=== PATIENT | female | born 1995 | race Caucasian/White ===

== ENCOUNTER → 2021-12-25 10:28 | Outpatient (CLI) | payer BC, MEDICAID, SELFPAY ==
--- NOTE | ~2021-12-25 | US_ITS ---
US breast RT complete INDICATION: Palpable right breast lump TECHNIQUE: Complete right breast ultrasound including all 4 quadrants in the subareolar location. COMPARISON: No prior studies for comparison. FINDINGS: The right breast is composed of normal heterogeneous echotexture without focal solid or cys tic mass. IMPRESSION: 1: Normal right breast ultrasound. BI-RADS CATEGORY 1 - NEGATIVE Reviewed, dictated and finalized at location A.
== END ==
PROVIDERS: PCP Nurse Practitioner; Visit Provider Nurse Practitioner
DX: N63.10 Unspecified lump in the right breast, unspecified quadrant (principal)
CPT/HCPCS: 76641

== ENCOUNTER 2023-12-04 15:06 | Observation (INO) | payer OTHER, SELFPAY ==
--- NOTE | ~2023-12-04 | CT_ITS ---
EXAMINATION: CT abdomen pelvis wo/w con DATE: 12/04/2023 20:19 INDICATION: Hematuria. Pyelonephritis. TECHNIQUE: Computed tomography (CT) of the abdomen and pelvis was performed without and with 100 mL O mnipaque 350. Automated exposure control and iterative reconstruction technique were employed. The do se-length product was 1074.01 mGy-cm. COMPARISON: None FINDINGS: The visualized portions of the lung bases demonstrate a calcified left lung nodule, consistent with o ld granulomatous disease. No pleural effusion. The heart size is normal. No pericardial effusion. The liver and spleen are normal. There are changes of cholecystectomy. The pancreas, adrenal glands, and kidneys are normal. There is no urolithiasis. There is an umbilical hernia containing fat. There are no dilated loops of bowel. The appendix is normal. There are no pathologically enlarged lymph nodes. There is mild lumbar spondylosis. IMPRESSION: 1. No urolithiasis. 2. Umbilical hernia containing fat. Reviewed, dictated and finalized at location E.
[2023-12-04 14:45] VITALS: BP 134/87; PULSE 102; RESP 20; TEMP 36.8; O2SAT 96
--- NOTE | 2023-12-04 14:45 | ADMGEN ---
This patient, JERSON CARIAS, was admitted to Medical Room 244-. Patient/family oriented to hospital policies and general routines including ID bracelet, bed and alarms, visiting hours, pain management, procedures, bathroom and other care routines, personal items, smoking policy, room service/diet, and visiting hours. Information on how to activate the Rapid Response Team has been discussed. Patient/Family are encouraged to report perceived risks to care and to ask questions if they do not understand what they are told or what they should do.
--- NOTE | 2023-12-04 15:14 | PM.IMHP ---
H&P: HPI History of Present Illness Date/Time: 12/04/23 15:14 Chief Complaint: pyelonephritis Narrative: 28 yo seen in office 12/01 for 4 days of frequency of urination. She tried Azo over the counter and made appointment. UA showed nitrates and blood. On exam had CVA and suprapubic tenderness. She started ciprofloxacin 500 mg x 7 days and was ordered Rochepin for suspected early pyelonephritis. Given IM 12/01. Patient called today reporting increased back pain with trouble breathing due to pain. She was advised to go to ER. She went to [place] and was given dose of morphine and new oral antibiotic script and dc home. She called from the parking lot and informed me what had happened. I recommended direct admit to [place] and patient agreed. Urine culture from office just checked on and still pending. Patient denies fevers. Review of Systems Constitutional: Constitutional: Reports body ache(s) and Reports fatigue Cardiovascular: Cardiovascular: Reports other (trouble breathing due to pain) Genitourinary: Genitourinary: Reports nocturia and Reports urinary urgency Musculoskeletal: Musculoskeletal: Reports back pain and Reports other PMFSH Past Medical History Medical History (Updated 12/04/23 @ 15:30 by Wendy Templeton MD) Depression with anxiety GERD (gastroesophageal reflux disease) IBS (irritable bowel syndrome) (normal spontaneous vaginal delivery) x2 PUD (peptic ulcer disease) Surgical History Surgical History (Updated 12/04/23 @ 15:27 by Wendy Templeton MD) S/P laparoscopic cholecystectomy Meds Home Medications and Allergies Allergies Allergy/AdvReac Type Severity Reaction Status Date / Time amoxicillin Allergy Unknown Hives / Verified 03/01/19 17:32 Red Face Penicillins Allergy Unknown Verified 03/01/19 17:32 Exam Const: General: uncomfortable and other (wt 185) GI: GI Palp: Yes Bladder palpation abnormal (tender) and Yes Other GI palpation findings present : General: Yes CVA tenderness External Female Exam: normal external appearance Speculum Exam - Vagina: normal appearance of the vagina Speculum Exam - Cervix: normal appearance of the cervix Bimanual exam- vagina & uterus: normal bimanual exam Assessment and Plan Assessment and plan (1) Pyelonephritis: Code(s): N12 - Tubulo-interstitial nephritis, not specified as acute or chronic Status: Acute Assessment and Plan: Due to worsening pain 48 hours after Rocephin and cipro, will admit for IV Rocephin and fluids. Will order CT scan to rule out other pathology mary. kidney stones. CBC ordered. Will check out to Dr. Laio for weekend. Patient aware.
[2023-12-04] MEDS: SODIUM CHLORIDE 0.9% IV 1,000 ML 150 ML IV CONT (15:57)
[2023-12-04] MEDS: HYDROcodone/acetaminophen (*CRX) 5-325 MG TABLET 1 TAB PO (15:58)
[2023-12-04 16:15] VITALS: BMI 30.9
[2023-12-04 17:13] LABS: Basophils Percent Auto 0.5 % (0.2-1.2); Eosinophils Absolute Auto 0.3 K/mm3 (0-0.3); Eosinophils Percent Auto 4.4 % (0-4.4); Hematocrit 38.9 % (37.0-47.0); Hemoglobin 12.9 g/dL (12.0-15.0); Lymphocytes Absolute Auto 2.62 K/mm3 (0.9-3.2); Lymphocytes Percent Auto 45.7 % (18.3-44.2); Mean Corpuscular HGB Conc 33.2 g/dl (32-36); Mean Corpuscular Volume 87.4 fl (80-100); Monocytes Absolute Auto 0.5 K/mm3 (0.1-0.6); Monocytes Percent Auto 8.6 % (2.6-8.5); Neutrophils Absolute Auto 2.3 K/mm3 (1.3-6.7); Neutrophils Percent Auto 40.8 % (45.5-73.1); Red Blood Count 4.45 M/mm3 (4.2-5.4); Red Cell Distribution Width 13.1 % (11.5-14.5); White Blood Count 5.7 K/mm3 (4.5-10.0)
[2023-12-04 19:08] LABS: SPREG INTERNAL CONTROL Positive; Serum Qual hCG Negative
[2023-12-04 19:51] LABS: Anion Gap 7 mmol/L (4-12); Blood Urea Nitrogen 10 mg/dL (7-17); Calcium 9.2 mg/dL (8.4-10.2); Carbon Dioxide 25 mmol/L (22-30); Chloride 105 mmol/L (98-107); Estimated CRCL calculation 99 ml/min; Estimated Glomerular Filt Rate > 60; Glucose 91 mg/dL (65-110); Potassium 4.2 mmol/L (3.4-5.0); Sodium 137 mmol/L (137-145)
[2023-12-04 20:00] VITALS: PULSE 102; RESP 20; O2SAT 96
[2023-12-04 20:41] VITALS: O2SAT 98
[2023-12-04 20:54] VITALS: BP 132/76; PULSE 90; RESP 18; TEMP 36.6; O2SAT 99
[2023-12-04] MEDS: HYDROcodone/acetaminophen (*CRX) 10-325 MG TABLET 1 TAB PO (21:11)
[2023-12-04] MEDS: ONDANSETRON HCL ODT 4 MG TABLET PO (23:44)
[2023-12-04] MEDS: hydrOXYzine HCL 25 MG TABLET PO (23:45)
[2023-12-05] MEDS: SODIUM CHLORIDE 0.9% IV 1,000 ML 150 ML IV CONT ×3 (00:20→15:38)
[2023-12-05] MEDS: VENLAFAXINE HCL XR 75 MG CAP.ER.24H 150 MG PO ×2 (00:21→20:43)
[2023-12-05] MEDS: GABAPENTIN 300 MG CAPSULE PO ×4 (00:22→16:46)
[2023-12-05] MEDS: NORTRIPTYLINE HCL 25 MG CAPSULE PO ×2 (00:24→20:42)
--- NOTE | 2023-12-05 02:11 | PM.GYNPNOP ---
KAIAKO KOHANGA REO - A/P Time Spent With Patient Time with patient: less than 15 minutes KAIAKO KOHANGA REO- PN:Subj Post-Op Subjective Date/time seen: 12/05/23 02:11 Pain better currently. Says she has some stinging with urination, but it has improved. No fevers. AVSS ABD soft, nontender EXT nontender Back: Very mild R CVA tenderness; left side nontender A: Likely urinary tract infection, improving. P: Check follow up CBC, UA. Appreciate hospitalist input. KAIAKO KOHANGA REO - PN: Obj Data Vital Signs Vital Signs: Vital Signs - 24 hr 12/04/23 16:38 12/04/23 14:45 12/04/23 20:00 Temperature 36.8 C Pulse Rate 102 H 102 H Respiratory Rate 20 20 Blood Pressure 134/87 Pulse Oximetry 96 96 Oxygen Delivery Room Air Room Air 12/04/23 20:54 12/04/23 20:41 Temperature 36.6 C Pulse Rate 90 Respiratory Rate 18 Blood Pressure 132/76 Pulse Oximetry 99 98 Oxygen Delivery Room Air Intake/Output Intake/Output: Intake & Output 12/02/23 12/03/23 12/04/23 12/05/23 23:59 23:59 23:59 23:59 Intake Total 1290 Output Total 400 Balance 890 Meds/Results Medications: Active Medications Generic Name Dose Route Start Last Admin Trade Name Freq PRN Reason Stop Dose Admin Hydrocodone Bitart/Acetaminophen 1 tab 12/04/23 15:06 12/04/23 15:58 Hydrocodone/Acetaminophen (*Crx) 5-325 Mg Tablet PO 1 tab Q4H PRN Administration Pain Rated 4-6 Hydrocodone Bitart/Acetaminophen 1 tab 12/04/23 15:06 12/04/23 21:11 Hydrocodone/Acetaminophen (*Crx) 10-325 Mg Tablet PO 1 tab Q4H PRN Administration Pain Rated 7-10 Albuterol 2 puff 12/04/23 23:08 Albuterol Sulfate (*Sp) Aerosol 1 Puff INHALATION Q4H PRN shortness of breath Alprazolam 1 mg 12/04/23 23:08 Alprazolam (*Crx) 0.5 Mg Tablet PO TID PRN Anxiety Escitalopram Oxalate 10 mg 12/05/23 09:00 Escitalopram Oxalate 10 Mg Tablet PO DAILY MIRELLA Famotidine 20 mg 12/05/23 09:00 Famotidine 20 Mg Tablet PO BID MIRELLA Gabapentin 300 mg 12/04/23 23:50 12/05/23 00:22 Gabapentin 300 Mg Capsule PO 300 mg TID MIRELLA Administration Hydroxyzine HCl 25 mg 12/04/23 23:10 12/04/23 23:45 Hydroxyzine Hcl 25 Mg Tablet PO 25 mg Q6H PRN Administration Anxiety Ceftriaxone Sodium 1 gm in 50 mls @ 100 mls/hr 12/04/23 16:00 12/04/23 16:28 Rocephin 1 Gm/Ns 50 Ml IVPB Infused Q24H MIRELLA Infusion Sodium Chloride 1,000 mls @ 150 mls/hr 12/04/23 15:15 12/05/23 00:20 Normal Saline Iv IV CONT 150 mls/hr .Q6H40M MIRELLA Administration Miscellaneous Information 0 each 12/04/23 23:25 12/04/23 23:45 Levonorgest-Eth.Estradiol-Iron [Balcoltra] 0.1 Mg-0.02 Mg (21)/Iron- Nonformulary. Please XX 01/03/24 23:24 0.1 each CLARIFY MIRELLA Administration Non-Formulary Medication 1 tablet 12/05/23 21:00 Levonorgest-Eth.Estradiol-Iron [Balcoltra] PO 01/04/24 20:59 HS MIRELLA Nortriptyline HCl 25 mg 12/04/23 23:55 12/05/23 00:24 Nortriptyline Hcl 25 Mg Capsule PO 25 mg HS MIRELLA Administration Ondansetron HCl 4 mg 12/04/23 23:08 12/04/23 23:44 Ondansetron Hcl Odt 4 Mg Tablet PO 4 mg Q6H PRN Administration Nausea Venlafaxine HCl 150 mg 12/04/23 23:40 12/05/23 00:21 Venlafaxine Hcl Xr 75 Mg Cap.Er.24h PO 150 mg HS MIRELLA Administration Radiology Results: ITS Impressions Abdomen/Pelvis CT 12/04/23 20:22 IMPRESSION: 1. No urolithiasis. 2. Umbilical hernia containing fat. Labs 12/04/23 17:02 12/04/23 18:29 Labs: Laboratory Results - last 24 hr 12/04/23 12/04/23 12/04/23 17:02 18:29 18:33 WBC 5.7 RBC 4.45 Hgb 12.9 Hct 38.9 MCV 87.4 MCH 29.0 MCHC 33.2 RDW 13.1 Plt Count TNP MPV TNP Immature Gran % (Auto) 0.0 Neut % (Auto) 40.8 L Lymph % (Auto) 45.7 H [place] % (Auto) 8.6 H Eos % (Auto) 4.4 Baso % (Auto) 0.5 Lymph # (Auto) 2.62 [place] # (Auto) 0.5 Eos # (Auto)
[2023-12-05] MEDS: HYDROcodone/acetaminophen (*CRX) 10-325 MG TABLET 1 TAB PO ×2 (04:14→14:43)
[2023-12-05 04:24] LABS: Appearance Urine Clear (Clear); Bacteria Urine None Seen /hpf; Bilirubin Urine Negative (Negative); Blood Urine Negative (Negative); Color Urine Yellow (Yellow); Glucose Urine UA Negative (Negative); Ketones Urine Negative (Negative); Leukocyte Esterase Ur Trace LEU/UL (Negative); Nitrate Urine Negative (Negative); Non Pathogenic Casts 0-2; Protein Urine Negative (Negative); RBC Urine 0-2 /hpf (0-2); Specific Grav Ur 1.011 (1.001-1.035); Squamous Epithelial Cell Urine None Seen /hpf (Few); Urobilinogen Urine 0.2 mg/dL (<2.0); WBC Urine 0-5 /hpf (0-3); pH Urine 6.5 (5.0-9.0)
[2023-12-05 04:26] LABS: Add Urine Microscopic? YES
[2023-12-05 05:38] VITALS: BP 108/60; PULSE 94; RESP 18; TEMP 36.4; O2SAT 98
[2023-12-05 06:33] LABS: Basophils Percent Auto 0.4 % (0.2-1.2); Eosinophils Absolute Auto 0.3 K/mm3 (0-0.3); Lymphocytes Absolute Auto 2.68 K/mm3 (0.9-3.2); Lymphocytes Percent Auto 53.8 % (18.3-44.2); Mean Corpuscular HGB Conc 32.4 g/dl (32-36); Mean Corpuscular Hemoglobin 28.6 pg (26-34); Mean Corpuscular Volume 88.5 fl (80-100); Mean Platelet Volume 9.5 fl (7.4-10.4); Monocytes Absolute Auto 0.4 K/mm3 (0.1-0.6); Monocytes Percent Auto 7.8 % (2.6-8.5); Neutrophils Absolute Auto 1.6 K/mm3 (1.3-6.7); Platelet Count Result 271 k/mm3 (150-375); Red Blood Count 3.84 M/mm3 (4.2-5.4); Red Cell Distribution Width 13.2 % (11.5-14.5)
[2023-12-05 08:12] VITALS: BP 124/75; PULSE 93; O2SAT 100
[2023-12-05] MEDS: FAMOTIDINE 20 MG TABLET PO ×2 (08:16→16:46)
[2023-12-05] MEDS: ALPRAZolam (*CRX) 0.5 MG TABLET 1 MG PO ×2 (08:16→16:46)
[2023-12-05] MEDS: ESCITALOPRAM OXALATE 10 MG TABLET PO (08:16)
[2023-12-05] MEDS: HYDROcodone/acetaminophen (*CRX) 5-325 MG TABLET 1 TAB PO ×2 (09:42→20:40)
[2023-12-05] MEDS: hydrOXYzine HCL 25 MG TABLET PO ×2 (12:46→18:55)
[2023-12-05 14:00] VITALS: BP 112/74; PULSE 92; RESP 16; TEMP 36.9; O2SAT 97
--- NOTE | 2023-12-05 14:57 | WPDCN ---
Assessment and Plan Assessment and plan (1) Urinary tract infection: Code(s): N39.0 - Urinary tract infection, site not specified Status: Acute Assessment and Plan: Continue ceftriaxone 1 g Q 24 hours. Urine culture obtained as an outpatient is still pending. (2) Gastroesophageal reflux disease: Code(s): K21.9 - Gastro-esophageal reflux disease without esophagitis Status: Acute Assessment and Plan: No acute issues. Continue famotidine 20 mg b.i.d.. (3) Depression with anxiety: Code(s): F41.8 - Other specified anxiety disorders Status: Acute Assessment and Plan: Well controlled on home medication. Continue venlafaxine and nortriptyline. Plan Thank you for allowing us to participate in this patient's care. Please do not hesitate to contact us with any questions. HPI Data of Consult Date/Time: 12/05/23 15:00 Requesting Physician: Wendy Templeton MD Consult Narrative Reason for consult: Medical management. Narrative: This is a pleasant 28-year-old female with history of asthma, gastroesophageal reflux disease, peptic ulcers, irritable bowel syndrome, anxiety, depression, and posttraumatic stress disorder whom the hospitalist service has been consulted for medical management. The patient provides the following history. About 1 week ago she developed urinary symptoms including dysuria, urgency, hesitancy, and frequency. She took azo [id number] for a couple of days without benefit. 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 Her symptoms worsened despite having been on 3 days of antibiotics and she was seen in the ED at [facility] several days ago at which time her antibiotic was changed and she was discharged home. Due to ongoing symptoms she was directly admitted to the hospital yesterday for IV antibiotics. Her urinary symptoms have improved over the past 24 hours though she continues to have dull aching pain in the low back. She has had some nausea but no vomiting. She also complains of some vaginal itching and presumes that she is getting a yeast infection from the antibiotics. She denies fever, chills, and sweats. She has not noticed any vaginal discharge and reports that she was treated a little over a month ago for Trichomonas. Regarding her chronic medical conditions, she reports that they were stable on her home medications. Review of Systems Review of Systems: 12 systems were reviewed and are negative except for as per HPI. [facility] Past Medical History Medical History (Updated 12/05/23 @ 21:18 by Lilia Walker PA-C) Depression with anxiety Gastroesophageal reflux disease Irritable bowel syndrome Peptic ulcer disease Posttraumatic stress disorder Surgical History Surgical History (Updated 12/05/23 @ 15:01 by Lilia Walker PA-C) History of laparoscopic cholecystectomy Family History Family History Grandparent Acute myocardial infarction Father Hypertension Social History Social History (Updated 12/05/23 @ 21:17 by Lilia Walker PA-C) Social History: Surrogate medical decision maker: Jeanine Rayo, mother. Code status: Full code. Smoking status: Never smoker Alcohol intake: never Substance use: current Substance use type: marijuana Do You Feel Safe in your Home?: Yes Lack of Transportation: No Lack of Food: Never True Current Housing: I Have Housing Concerned About Future Housing: No Difficulty Paying Gas/Electric Bills: No Difficulty Paying for Meds: No Currently Unemployed: No Education: High School Diploma/GED Difficulty w/ Childcare or Family Care: No Additio
[2023-12-05] MEDS: FLUCONAZOLE 150 MG TABLET PO (18:55)
[2023-12-05 21:55] VITALS: BP 127/70; PULSE 99; RESP 18; TEMP 36.4; O2SAT 98
--- NOTE | 2023-12-05 23:32 | PC.NURSE ---
12/05/23 @ 2300 Pt requested Sodium Chloride IV Infusion held until 0400.
[2023-12-06] MEDS: HYDROcodone/acetaminophen (*CRX) 10-325 MG TABLET 1 TAB PO ×2 (01:50→08:21)
[2023-12-06] MEDS: SODIUM CHLORIDE 0.9% IV 1,000 ML 150 ML IV CONT (01:55)
[2023-12-06] MEDS: hydrOXYzine HCL 25 MG TABLET PO (01:55)
[2023-12-06] MEDS: ONDANSETRON HCL ODT 4 MG TABLET PO (03:11)
[2023-12-06 05:51] VITALS: BP 121/71; PULSE 100; RESP 18; TEMP 36.4; O2SAT 100
--- NOTE | 2023-12-06 06:50 | PC.NURSE ---
12/06/23 @ 0155, patient requested Sodium Chloride IV infusion resumed.
--- NOTE | 2023-12-06 07:09 | PM.IMPN ---
Progress Note: A&P Assessment and Plan (1) Urinary tract infection: Code(s): N39.0 - Urinary tract infection, site not specified Status: Acute Assessment and Plan: Per chart review, urinalysis obtained at patients gynecologists office this week was reportedly positive for nitrates and blood. - Urinalysis obtained 12/04: clear appearance with trace leukocytes. Negative blood, nitrates, bacteria, and WBC. - Urine sample obtained during admission did not go to culture. - Abdomen/pelvis CT: Kidneys are normal and there is no urolithiasis present. - Urine culture obtained as an outpatient is still pending. - Continue Rocephin 1g daily, started on 12/03 (2) Gastroesophageal reflux disease: Code(s): K21.9 - Gastro-esophageal reflux disease without esophagitis Status: Acute Assessment and Plan: Chronic, well controlled on home medication. - Continue Pepcid 20 mg BID (3) Depression with anxiety: Code(s): F41.8 - Other specified anxiety disorders Status: Acute Assessment and Plan: Chronic, well controlled on home medication. - Continue Effexor 150 mg daily, Lexapro 10 mg daily and Nortriptyline 25 mg daily Subjective Date/time seen: 12/06/23 07:09 Interval history: 28-year-old female with history of asthma, gastroesophageal reflux disease, peptic ulcers, irritable bowel syndrome, anxiety, depression, and posttraumatic stress disorder whom the hospitalist service has been consulted for medical management of a urinary tract infection. Review of Systems Review of Systems: All systems reviewed & are unremarkable except as noted in HPI and below Exam Narrative: AF HR 97 RR 20 SpO2 100 General: well nourished, well-developed female in no acute respiratory distress who is nontoxic appearing, lying semi recumbent in bed. HEENT: Normocephalic. Atraumatic. Pupils equal round reactive to light. Extraocular movement intact. Sclera clear and anicteric. Nares patent. No oral lesions. Moist mucous membranes. Tongue is midline. Palate jarod symmetrically. No facial asymmetry. Neck: Neck was supple. No dominant adenopathy, thyromegaly or masses. 2+ carotid upstrokes without bruits. Chest: Lungs are clear to auscultation bilaterlly. No wheezes or crackles. CV: Heart was regular rate and rhythm. S1-S2. No murmurs, gallops, or rubs. Abd: Abdomen was soft. Nontender. Nondistended. Postive bowel sounds. No organomegaly or masses. Ext: No clubbing, cyanosis, or edema. 2+ DP pulses bilaterally. Neuro: Patient is alert and oriented x4. Strenth is 5/5 in both upper and lower extremities. Cranial nerves 2-12 are intact. Speech is clear. Psych: Normal nood and affect. Patient is pleasant and cooperative. Skin: Warm and dry. No rashes noted. Objective Data Vital Signs Vital Signs: Vital Signs - 24 hr 12/05/23 08:12 12/05/23 08:00 12/05/23 14:00 Temperature 98.4 F Pulse Rate 93 92 Respiratory Rate 16 Blood Pressure 124/75 112/74 Pulse Oximetry 100 97 Oxygen Delivery Room Air 12/05/23 21:55 12/05/23 20:43 12/06/23 05:51 Temperature 97.6 F 97.6 F Pulse Rate 99 100 Respiratory Rate 18 18 Blood Pressure 127/70 121/71 Pulse Oximetry 98 100 Oxygen Delivery Room Air Intake/Output Intake/Output: Intake & Output 12/03/23 12/04/23 12/05/23 12/06/23 23:59 23:59 23:59 23:59 Intake Total 1290 3890 800 Output Total 400 1400 1500 Balance 890 2490 -700 Meds/Results Medications: Active Medications Generic Name Dose Route Start Last Admin Trade Name Freq PRN Reason Stop Dose Admin Hydrocodone Bitart/Acetaminophen 1 tab 12/04/23 15:06 12/05/23 20:40 Hydrocodone/Acetaminophen (*Crx) 5-325 Mg Tablet PO 1 tab Q4H PRN Administration Pain Rated 4-6 Hydrocodone Bitart/Acetaminophen 1 tab 12/04/23 15:06 12/06/23 01:50 Hydrocodone/Acetaminophen (*Crx) 10-325 Mg Tablet PO 1 tab Q4H PRN Administration Pain Rated 7-10 Albutero
[2023-12-06 07:49] LABS: Basophils Percent Auto 0.6 % (0.2-1.2); Eosinophils Absolute Auto 0.3 K/mm3 (0-0.3); Eosinophils Percent Auto 4.9 % (0-4.4); Hematocrit 34.8 % (37.0-47.0); Hemoglobin 11.3 g/dL (12.0-15.0); Immature Granulocyte Absolute 0.01 K/mm3 (0.00-0.031); Immature Granulocyte Percent A 0.2 % (0-0.5); Lymphocytes Absolute Auto 2.36 K/mm3 (0.9-3.2); Lymphocytes Percent Auto 46.4 % (18.3-44.2); Mean Corpuscular HGB Conc 32.5 g/dl (32-36); Mean Corpuscular Hemoglobin 29.2 pg (26-34); Mean Corpuscular Volume 89.9 fl (80-100); Mean Platelet Volume 9.4 fl (7.4-10.4); Monocytes Absolute Auto 0.4 K/mm3 (0.1-0.6); Monocytes Percent Auto 7.7 % (2.6-8.5); Neutrophils Absolute Auto 2.1 K/mm3 (1.3-6.7); Neutrophils Percent Auto 40.2 % (45.5-73.1); Platelet Count Result 247 k/mm3 (150-375); Red Blood Count 3.87 M/mm3 (4.2-5.4); Red Cell Distribution Width 13.4 % (11.5-14.5); White Blood Count 5.1 K/mm3 (4.5-10.0)
[2023-12-06 07:51] LABS: Alanine Aminotransferase 40 U/L (6-35); Albumin Level 3.7 g/dL (3.5-5.1); Alkaline Phosphatase 44 U/L (38-126); Anion Gap 9 mmol/L (4-12); Aspartate Amino Transferase 78 U/L (14-36); Bilirubin,Total 0.2 mg/dL (0.2-1.3); Blood Urea Nitrogen 8 mg/dL (7-17); Calcium 7.7 mg/dL (8.4-10.2); Carbon Dioxide 23 mmol/L (22-30); Chloride 106 mmol/L (98-107); Estimated CRCL calculation 112 ml/min; Estimated Glomerular Filt Rate > 60; Glucose 93 mg/dL (65-110); Potassium 3.9 mmol/L (3.4-5.0); Sodium 138 mmol/L (137-145)
[2023-12-06] MEDS: GABAPENTIN 300 MG CAPSULE PO (08:21)
[2023-12-06] MEDS: FAMOTIDINE 20 MG TABLET PO (08:21)
[2023-12-06] MEDS: ESCITALOPRAM OXALATE 10 MG TABLET PO (08:21)
[2023-12-06 09:09] VITALS: PULSE 97; RESP 20; O2SAT 98
--- NOTE | 2023-12-06 10:13 | PM.GYNPNOP ---
OFFICE MACHINES WIRER - A/P Time Spent With Patient Time with patient: less than 15 minutes OFFICE MACHINES WIRER- PN:Subj Post-Op Subjective Date/time seen: 12/06/23 10:13 Feeling fine today. Would like to go home. AVSS ABD soft, nontender EXT nontender Back: No CVA tenderness. WBC 5.1k UA unremarkable. A: Likely resolving UTI. P: Home. [facility]u Dr. Templeton in the next week. Very much appreciate hospitalist input. OFFICE MACHINES WIRER - PN: Obj Data Vital Signs Vital Signs: Vital Signs - 24 hr 12/05/23 14:00 12/05/23 21:55 12/05/23 20:43 Temperature 36.9 C 36.4 C Pulse Rate 92 99 Respiratory Rate 16 18 Blood Pressure 112/74 127/70 Pulse Oximetry 97 98 Oxygen Delivery Room Air Fraction of Inspired Oxygen 12/06/23 05:51 12/06/23 09:09 Temperature 36.4 C Pulse Rate 100 97 Respiratory Rate 18 20 Blood Pressure 121/71 Pulse Oximetry 100 98 Oxygen Delivery Room Air Fraction of Inspired Oxygen 21 Intake/Output Intake/Output: Intake & Output 12/03/23 12/04/23 12/05/23 12/06/23 23:59 23:59 23:59 23:59 Intake Total 1290 3890 800 Output Total 400 1400 1500 Balance 890 2490 -700 Meds/Results Medications: Active Medications Generic Name Dose Route Start Last Admin Trade Name Freq PRN Reason Stop Dose Admin Hydrocodone Bitart/Acetaminophen 1 tab 12/04/23 15:06 12/05/23 20:40 Hydrocodone/Acetaminophen (*Crx) 5-325 Mg Tablet PO 1 tab Q4H PRN Administration Pain Rated 4-6 Hydrocodone Bitart/Acetaminophen 1 tab 12/04/23 15:06 12/06/23 08:21 Hydrocodone/Acetaminophen (*Crx) 10-325 Mg Tablet PO 1 tab Q4H PRN Administration Pain Rated 7-10 Albuterol 2 puff 12/04/23 23:08 Albuterol Sulfate (*Sp) Aerosol 1 Puff INHALATION Q4H PRN shortness of breath Alprazolam 1 mg 12/04/23 23:08 12/05/23 16:46 Alprazolam (*Crx) 0.5 Mg Tablet PO 1 mg TID PRN Administration Anxiety Escitalopram Oxalate 10 mg 12/05/23 09:00 12/06/23 08:21 Escitalopram Oxalate 10 Mg Tablet PO 10 mg DAILY MIRELLA Administration Famotidine 20 mg 12/05/23 09:00 12/06/23 08:21 Famotidine 20 Mg Tablet PO 20 mg BID MIRELLA Administration Gabapentin 300 mg 12/04/23 23:50 12/06/23 08:21 Gabapentin 300 Mg Capsule PO 300 mg TID MIRELLA Administration Hydroxyzine HCl 25 mg 12/04/23 23:10 12/06/23 01:55 Hydroxyzine Hcl 25 Mg Tablet PO 25 mg Q6H PRN Administration Anxiety Ceftriaxone Sodium 1 gm in 50 mls @ 100 mls/hr 12/04/23 16:00 12/05/23 17:17 Rocephin 1 Gm/Ns 50 Ml IVPB Infused Q24H MIRELLA Infusion Sodium Chloride 1,000 mls @ 150 mls/hr 12/04/23 15:15 12/06/23 01:55 Normal Saline Iv IV CONT 150 mls/hr .Q6H40M MIRELLA Administration Miscellaneous Information 0 each 12/04/23 23:25 12/04/23 23:45 Levonorgest-Eth.Estradiol-Iron [Balcoltra] 0.1 Mg-0.02 Mg (21)/Iron- Nonformulary. Please XX 01/03/24 23:24 0.1 each CLARIFY [facility] Administration Non-Formulary Medication 1 tablet 12/05/23 21:00 Levonorgest-Eth.Estradiol-Iron [Balcoltra] PO 01/04/24 20:59 HS [facility] Nortriptyline HCl 25 mg 12/04/23 23:55 12/05/23 20:42 Nortriptyline Hcl 25 Mg Capsule PO 25 mg HS [facility] Administration Ondansetron HCl 4 mg 12/04/23 23:08 12/06/23 03:11 Ondansetron Hcl Odt 4 Mg Tablet PO 4 mg Q6H PRN Administration Nausea Venlafaxine HCl 150 mg 12/04/23 23:40 12/05/23 20:43 Venlafaxine Hcl Xr 75 Mg Cap.Er.24h PO 150 mg HS MIRELLA Administration Radiology Results: ITS Impressions Abdomen/Pelvis CT 12/04/23 20:22 IMPRESSION: 1. No urolithiasis. 2. Umbilical hernia containing fat. Labs 12/06/23 07:31 12/06/23 07:31 Labs: Laboratory Results - last 24 hr 12/06/23 07:31 WBC 5.1 RBC 3.87 L Hgb 11.3 L Hct 34.8 L MCV 89.9 MCH 29.2 MCHC 32.5 RDW 13.4 Plt Count 247 MPV 9.4 Immature Gran % (Auto) 0.2 Neut % (Auto) 40.2 L Lymph %
--- NOTE | 2023-12-06 10:29 | PM.DS ---
DS: Admitting Diagnosis Discharge Date 12/06/23 Admitting Diagnosis Flank pain Likely UTI DS: Discharge Diagnosis Discharge Diagnosis (1) Urinary tract infection: Code(s): N39.0 - Urinary tract infection, site not specified Status: Acute DS: Summary Hospital Course Hospital Course: Admitted for flank pain. UA neg. Imaging neg. WBC normal. Symptoms improved on Rocephin. Was able to go home on Keflex. Time Spent with Patient Time attestation: Total time spent providing and/or coordinating discharge services: DS: Data Data Completed and Pending Labs on day of discharge: Labs from last 24 hours 12/06/23 07:31 WBC 5.1 RBC 3.87 L Hgb 11.3 L Hct 34.8 L MCV 89.9 MCH 29.2 MCHC 32.5 RDW 13.4 Plt Count 247 MPV 9.4 Immature Gran % (Auto) 0.2 Neut % (Auto) 40.2 L Lymph % (Auto) 46.4 H [place] % (Auto) 7.7 Eos % (Auto) 4.9 H Baso % (Auto) 0.6 Lymph # (Auto) 2.36 [place] # (Auto) 0.4 Eos # (Auto) 0.3 Baso # (Auto) 0.0 Abs Immat Gran (auto) 0.01 Absolute Neuts (auto) 2.1 Absolute Nucleated RBC 0.000 Nucleated RBC % 0.0 Sodium 138 Potassium 3.9 Chloride 106 Carbon Dioxide 23 Anion Gap 9 BUN 8 Creatinine 0.70 Estim Creat Clear Calc 112 Estimated GFR > 60 Glucose 93 Calcium 7.7 L Total Bilirubin 0.2 AST 78 H ALT 40 H Alkaline Phosphatase 44 Total Protein 7.0 Albumin 3.7 Discharge Plan Discharge Attending physician on discharge: Wendy Templeton Consulting providers: Reagan Haddad Discharging Clinician: Khoi Liao Patient Disposition: Home, Self-Care Activity: as tolerated Diet: regular Discharge Instructions: Call or return if temperature above 100.4? F, increased abdominal pain, increased vaginal bleeding or any new problems. Patient Instructions: Antibiotic Form, Urinary Tract Infection in Women (GEN), Kidney Infection (GEN), Flank Pain (ED) Stand Alone Forms: General Discharge Information Follow-up/Referrals: Wendy Templeton MD [Physician] - Call for Appointment Discharge Medications: New cephalexin 500 mg capsule 500 mg PO Q12H Qty: 14 0RF Continued alprazolam 1 mg tablet 1 mg PO TID PRN (Reason: Anxiety) ondansetron HCl 4 mg tablet 4 mg PO Q6H PRN (Reason: Nausea) venlafaxine 150 mg capsule,extended release 24hr 150 mg PO DAILY nortriptyline 25 mg capsule 25 mg PO HS famotidine 20 mg tablet 20 mg PO BID gabapentin 300 mg capsule 300 mg PO TID hydroxyzine HCl 25 mg tablet 25 mg PO Q6H albuterol sulfate 90 mcg/actuation HFA aerosol inhaler 2 puff inhalation Q4H PRN (Reason: shortness of breath) escitalopram oxalate 10 mg tablet 10 mg PO DAILY levonorgest-eth.estradiol-iron [Balcoltra] 0.1 mg-0.02 mg (21)/iron (7) Tablet 1 tablet PO HS Date of admission: 12/04/23 15:06 Primary Care Provider: Leroy,Nabila Garcia Admitting Provider: Wendy Templeton Attending physician on admission: Elaine Jones Condition: Stable
== END 2023-12-06 11:24 | disposition home or self-care (01) ==
PROVIDERS: Obstetrics & Gynecology; Admitting Provider Obstetrics & Gynecology Gynecology; PCP Nurse Practitioner Family; Visit Provider Student in an Organized Health Care Education/Training Program
DX: N12 Tubulo-interstitial nephritis, not specified as acute or chronic (principal); N39.0 Urinary tract infection, site not specified; K21.9 Gastro-esophageal reflux disease without esophagitis; F41.8 Other specified anxiety disorders
CPT/HCPCS: 36415; 74178; 80048; 80053; 81001; 84703; 85025; 85055; 94640; 96365; A9270; G0378; G0379; J0696; J7030; Q9967